=== PATIENT | female | born 1980 ===

== ENCOUNTER 2018-06-23 10:27 | Emergency (ER) | payer OTHER ==
[2018-06-23 10:56] VITALS: O2SAT 100
[2018-06-23 11:32] LABS: HCG,QUALITATIVE URINE NEGATIVE (NEGATIVE)
[2018-06-23 11:38] LABS: SQUAMOUS EPITHIAL 6 /hpf (0-5); URINE BILIRUBIN NEGATIVE (NEGATIVE); URINE BLOOD NEGATIVE (NEGATIVE); URINE CLARITY Hazy (Clear); URINE COLOR Yellow (YELLOW); URINE GLUCOSE (UA) NORMAL (Normal); URINE LEUKOCYTE ESTERASE NEG Leu/uL (Negative); URINE PROTEIN NEGATIVE (NEGATIVE); URINE UROBILINOGEN NORMAL mg/dL (0.2-1.0)
--- NOTE | 2018-06-23 11:39 | C.PDOC ---
History Of Present Illness 37 y/o female c/o foul vag discharge x 1 week, dysuria. last normal pap in apr 2018. has unprotected sex with one partner, who has no complaints. no hx gc or chlamydia Time Seen by Provider: 06/23/18 11:14 Chief Complaint (Nursing): Female Genitourinary History Per: Patient History/Exam Limitations: no limitations Onset/Duration Of Symptoms: Days (7) Current Symptoms Are (Timing): Still Present Quality Of Discomfort: Burning Associated Symptoms: Urinary Symptoms. denies: Fever, Chills, Nausea, Vomiting Past Medical History Reviewed: Historical Data, Nursing Documentation, Vital Signs Vital Signs: Last Vital Signs Temp 97.7 F 06/23/18 10:53 Pulse 80 06/23/18 10:53 Resp 20 06/23/18 10:53 BP 102/63 06/23/18 10:53 Pulse Ox 100 06/23/18 10:53 - Medical History PMH: No Chronic Diseases Surgical History: No Surg Hx Family History: States: Unknown Family Hx - Social History Hx Alcohol Use: No Hx Substance Use: No - Immunization History Hx Tetanus Toxoid Vaccination: No Hx Influenza Vaccination: No Review Of Systems Constitutional: Negative for: Fever, Chills Gastrointestinal: Positive for: Abdominal Pain (suprapubic) Genitourinary: Positive for: Dysuria, Vaginal Discharge, Pelvic Pain. Negative for: Vaginal Bleeding Skin: Negative for: Rash, Lesions Neurological: Negative for: Weakness, Numbness Physical Exam - Physical Exam Appears: Non-toxic, No Acute Distress Skin: Warm, Dry Gastrointestinal/Abdominal: Bowel Sounds, Soft, No Tenderness, No Distention, No Rebound Pelvic: Normal External Exam, Normal Speculum Exam, Normal Bimanual Exam, No Vaginal Bleeding, No Vaginal Discharge, No Cervical Motion Tenderness, No Adnexal Tenderness, Other (chaperoned by JIM Wall) ED Course And Treatment - Laboratory Results Lab Results: Urine HCG, Qual Negative (NEGATIVE) 06/23/18 11:13 Urine HCG, Qual Negative (NEGATIVE) 06/23/18 11:13 O2 Sat by Pulse Oximetry: 100 Medical Decision Making Medical Decision Making: suprpap[ubi discomfort with dysuria, vaginal discomfort. normal pelvic exam. will tx for bv. d/c to nipple maker f/u Disposition Counseled Patient/Family Regarding: Studies Performed, Diagnosis, Need For Followup, Rx Given - Disposition Referrals: [facility] [Outside] Disposition: HOME/ ROUTINE Disposition Time: 12:23 Condition: GOOD Additional Instructions: Use medicamentos a la hora de acostarse en la vagina ayesha la prxima semana. Keely un seguimiento en la clnica de ETS o en la [facility] en [place] la prxima semana. No tome alcohol ayesha la prxima semana mientras est tomando greg medicamento Prescriptions: Metronidazole [Metrogel-Vaginal] 1 ea VG HS #7 gel Instructions: Bacterial Vaginosis (DC) Forms: STD Clinic, Gen Discharge Inst Lithuanian, Stealz (Lithuanian) Print Language: TAMAZIGHT - Clinical Impression Clinical Impression: Vaginitis
[2018-06-23 12:48] VITALS: BP 106/78; PULSE 71; RESP 18; TEMP 98.1
== END 2018-06-23 12:49 | disposition home or self-care (01) ==
LOC: C.ER 10:27
DX: N76.0 Acute vaginitis (principal)